=== PATIENT | male | born 1945 | race Caucasian/White ===

== ENCOUNTER 2017-03-22 17:03 | Inpatient (IN) | payer MEDICARE, OTHER ==
[2017-03-22] VITALS (8 sets, daily range): BP systolic 112–223; BP diastolic 64–106; PULSE 64–75; RESP 16–20; TEMP 98–98.6; O2SAT 96–100
[~2017-03-22] VITALS: Ht 167.6 cm; Wt 83.0 kg
[~2017-03-22 17:03] MED LIST: 1-ME1LIQ PO; ALBU0.086 NEB; ALBU8I INH; ASPI81TA82 PO; BENZ1CAP34 PO; DOCU1CAP39 PO; GABA400 PO; LANTUSP SQ; LORA-474 PO; MECL-62 PO; METF-324 PO; METO100T PO; PERC10TA27 PO; PRIN20TA2 PO; PROT40TA PO; SERT-129 PO; SIMV20 PO; TEMA15CA PO
[2017-03-22] MEDS ORDERED: HEPARIN SODIUM - IV 10,000 UNITS/10 ML VIAL IV STA (17:08)
[2017-03-22] MEDS ORDERED: ASPIRIN 81 MG CHEW TAB PO STA (17:08)
[2017-03-22] MEDS ORDERED: NITROGLYCERIN 0.4 MG SL 25 TABS/BTL SL STA (17:08)
[2017-03-22] MEDS ORDERED: SODIUM CHLOR 0.9% 1000 ML INJ 1,000 ML IV ONE (17:08)
[2017-03-22] MEDS ORDERED: NITROGLYCERIN-DEXTROSE INJ 250 ML IV SCH (17:15)
[2017-03-22] MEDS ORDERED: SODIUM CHLORIDE 0.9% FLUSH 10 ML FLUSH IVF PRN (17:15)
[2017-03-22] MEDS ORDERED: MIDAZOLAM HCL 2 MG/2 ML VIAL ONE (17:33)
[2017-03-22] MEDS ORDERED: HEPARIN-NS/PF INJ 500 ML ONE ×2 (17:33→18:06)
[2017-03-22 17:38] LABS: BASOPHIL % 0.3 % (0.0-2.0); EOSINOPHIL # 0.2 TH/MM3 (0-0.4); EOSINOPHIL % 2.6 % (0.0-4.0); HEMATOCRIT 41.3 % (39.0-51.0); LYMPH % 56.4 % (9.0-44.0); MEAN CELL VOLUME 83.3 FL (80.0-100.0); MEAN CORPUSCULAR HEMOGLOBIN 28.7 PG (27.0-34.0); MEAN CORPUSCULAR HGB CONC 34.5 % (32.0-36.0); MONO % 6.7 % (0.0-8.0); PLATELET COUNT 230 TH/MM3 (150-450); RED BLOOD COUNT 4.95 MIL/MM3 (4.50-5.90); RED CELL DISTRIBUTION WIDTH 12.5 % (11.6-17.2); WHITE BLOOD COUNT 8.9 TH/MM3 (4.0-11.0)
[2017-03-22] MEDS ORDERED: methylPREDNISolone SOD SUCC 125 MG/2 ML VIAL ONE (17:38)
[2017-03-22] MEDS ORDERED: diphenhydrAMINE HCL 50 MG/ML VIAL ONE (17:38)
--- NOTE | 2017-03-22 17:39 | RADRPT ---
EXAM DATE/TIME: 03/22/2017 17:02 [place] COMPARISON: CHEST SINGLE AP, October 25, 2015, 18:57. INDICATIONS : Stemi alert. MEDICAL HISTORY : Hypertension. Chronic obstructive pulmonary disease. SURGICAL HISTORY : CABG. ENCOUNTER: Initial ACUITY: 1 day PAIN SCORE: 8/10 LOCATION: Bilateral chest FINDINGS: A single view of the chest demonstrates the lungs to be symmetrically aerated without evidence of mas s, infiltrate or effusion. Median sternotomy wires and surgical changes of prior cardiac surgery. The cardiomediastinal contours are unremarkable. Osseous structures are intact. CONCLUSION: 1. No acute cardiopulmonary disease. Bart Welch MD on March 22, 2017 at 17:37 Board Certified Radiologist. This report was verified electronically.
--- NOTE | 2017-03-22 17:41 | PD ---
HPI Chief Complaint: Pain: Acute or Chronic Time Seen by Provider: 17:08 Travel History International Travel<30 days: No Contact w/Intl Traveler<30days: No Traveled to known affect area: No History of Present Illness HPI Patient is a 72-year-old male who comes in complaining of left-sided chest pain. He says it started 30 minutes prior to arrival he was in the laundry mat. He says the pain radiates to his arm and is severe. He has history of five-vessel CABG as well as a stent placed 2 months ago. PFSH Past Medical History Hx Anticoagulant Therapy: Yes (ASA PO DAILY) Arthritis: Yes Asthma: Yes Autoimmune Disease: No Blood Disorders: No Anxiety: Yes Heart Rhythm Problems: No Cancer: No Cardiac Catheterization: Yes Cardiovascular Problems: Yes (CABG X 5, HTN, HIGH CHOLESTEROL) High Cholesterol: Yes Chemotherapy: No Chest Pain: Yes Congestive Heart Failure: No COPD: Yes Cerebrovascular Accident: Yes Coronary Artery Disease: Yes Diabetes: Yes (ORAL MEDS AND INSULIN) Diminished Hearing: No Endocrine: Yes GERD: No Glaucoma: No Genitourinary: Yes Headaches: No Hepatitis: No Hiatal Hernia: No Hypertension: Yes Immune Disorder: No Kidney Stones: Yes Musculoskeletal: Yes Neurologic: Yes Psychiatric: No Respiratory: Yes (ASTHMA) Immunizations Current: Yes Myocardial Infarction: Yes Radiation Therapy: No Renal Failure: No Seizures: No Sickle Cell Disease: No Sleep Apnea: No Thyroid Disease: No Ulcer: No Past Surgical History Abdominal Surgery: No AICD: No Cardiac Surgery: Yes (2007) Coronary Artery Bypass Graft: Yes (5 VESSEL BYPASS ) Ear Surgery: No Endocrine Surgery: No Eye Surgery: No Genitourinary Surgery: No Gynecologic Surgery: No Joint Replacement: No Oral Surgery: No Pacemaker: No Thoracic Surgery: No Other Surgery: Yes Social History Alcohol Use: No Tobacco Use: No Substance Use: No Allergies-Medications (Allergen,Severity, Reaction): Coded Allergies: Geodon (Unverified Allergy, Severe, MOUTH SWELLS UP, 09/28/15) Iodine (Verified Allergy, Severe, Anaphylaxis, 09/28/15) Seafood (Verified Allergy, Severe, Anaphylaxis, 09/28/15) Reported Meds & Prescriptions Reported Meds & Active Scripts Active Aspir-81 (Aspirin) 81 Mg Tab 81 Mg PO DAILY 30 Days Meclizine Hcl (Meclizine HCl) 25 Mg Tab 25 Mg PO TID PRN Benzonatate 200 Mg Cap 200 Mg PO Q8H PRN Proventil Ud 0.083% (2.5 Mg/3 Ml) (Albuterol Sulfate) 2.5 Mg/3 Ml Inha 2.5 Mg NEB Q4HR NEB Protonix (Pantoprazole Sodium) 40 Mg Tab 40 Mg PO DAILY Reported Prinivil (Lisinopril) 20 Mg Tab 20 Mg PO BID Simvastatin 20 mg (Simvastatin) 20 Mg Tab 1 Tab PO HS Temazepam 15 Mg Cap 15 Mg PO HS PRN Colace 100 Mg Cap (Docusate Sodium) 100 Mg Cap 100 Mg PO BID Ventolin Hfa (Albuterol Sulfate) 8 Gm Aero 2 Puff INH Q4 PRN * SHAKE WELL BEFORE USE * Amlodipine Besylate 10 mg (Amlodipine Besylate) 10 Mg Tab 1 Tab PO DAILY Sertraline 100 mg (Sertraline HCl) 100 Mg Tab 100 Mg PO BID Percocet 10/325 (Oxycodone/Acetaminophen) Oxycodone 10/325 Acetaminophen Tab 1 Tab PO TID PRN Lantus (Insulin Glargine) 100 Units/Ml Inj 40 Units SQ HS Glucophage (Metformin HCl) 1,000 Mg Tab 1,000 Mg PO BID Ativan (Lorazepam) 1 Mg Tab 1 Mg PO TIDPRN Neurontin (Gabapentin) 400 Mg Cap 1,200 Mg PO TID Lopressor (Metoprolol Tartrate) 100 Mg Tab 100 Mg PO BID Review of Systems Except as stated in HPI: all other systems reviewed are Neg General / Constitutional: No: Fever, Chills HENT: No: Headaches, Lightheadedness Cardiovascular: Positive: Chest Pain or Discomfort Respiratory: Positive: Shortness of Breath Gastrointestinal: No: Nausea, Vomiting Genitourinary: No: Dysuria Musculoskeletal: No: Edema Skin: No Rash, No Change in Pigmentation Neurologic: No: Weakness, Dizziness Physical Exam Narrative GENERAL: Awake and alert, in mild distress due to pain. SKIN: Focused skin assessment warm/dry. HEAD: Atraumatic. Normocephalic. EYES: Pupils equal and round. No scleral icterus. ENT: ucous membranes pink and moist. NECK: Trachea midline. No JVD. CARDIOVASCULAR: Regular rate and rhythm. No murmur appreciated. RESPIRATORY: No accessory muscle use. Clear to auscultation. Breath sounds equal bilaterally. GASTROINTESTINAL: Abdomen soft, non-tender, nondistended. MUSCULOSKELETAL: No obvious deformities. No clubbing. No cyanosis. No edema. NEUROLOGICAL: Awake and alert. No obvious cranial nerve deficits. Motor grossly within normal limits. Normal speech. PSYCHIATRIC: Appropriate mood and affect; insight and judgment normal. Data Data Last Documented VS Vital Signs Date Time Temp Pulse Resp B/P Pulse Ox O2 Delivery O2 Flow Rate FiO2 03/22/17 17:20 75 16 147/70 100 Room Air 03/22/17 17:06 98.6 Orders Troponin I (03/22/17 17:08) Ckmb (Isoenzyme) Profile (03/22/17 17:08) Complete Blood Count With Diff (03/22/17 17:08) I-Stat Profile (03/22/17 17:08) I-Stat Creatinine (03/22/17 17:08) Calcium (03/22/17 17:08) Magnesium (Mg) (03/22/17 17:08) Prothrombin Time / Inr (Pt) (03/22/17 17:08) Act Partial Throm Time (Ptt) (03/22/17 17:08) B-Type Natriuretic Peptide (03/22/17 17:08) Chest, Single Ap (03/22/17 17:08) Oxygen Administration (03/22/17 17:08) Iv Access Insert/Monitor (03/22/17 17:08) Oximetry (03/22/17 17:08) Sodium Chlor 0.9% 1000 Ml Inj (Ns 1000 M (03/22/17 17:08) Sodium Chloride 0.9% Flush (Ns Flush) (03/22/17 17:15) Aspirin Chew (Aspirin Chew) (03/22/17 17:08) Nitroglycerin Sl (Nitrostat Sl) (03/22/17 17:08) Nitroglycerin-Dextrose Inj (Nitroglyceri (03/22/17 17:15) Heparin Inj (Heparin Inj) (03/22/17 17:08) Cardiac Catheterization (03/22/17 ) Heparin-Ns/Pf Inj (Heparin-Ns/Pf Inj) (03/22/17 17:33) Midazolam Inj (Versed Inj) (03/22/17 17:33) Fentanyl Inj (Fentanyl Inj) (03/22/17 17:33) Diphenhydramine Inj (Benadryl Inj) (03/22/17 17:38) Methylprednisolone So Succ Inj (Solumedr (03/22/17 17:38) Admit Order (Ed Use Only) (03/22/17 ) Labs Laboratory Tests Test 03/22/17 17:12 White Blood Count 8.9 TH/MM3 Red Blood Count 4.95 MIL/MM3 Hemoglobin 14.2 GM/DL Bedside Hemoglobin 14.6 G/DL Hematocrit 41.3 % Bedside Hematocrit 43.0 % Mean Corpuscular Volume 83.3 FL Mean Corpuscular Hemoglobin 28.7 PG Mean Corpuscular Hemoglobin 34.5 % Concent Red Cell Distribution Width 12.5 % Platelet Count 230 TH/MM3 Mean Platelet Volume 8.2 FL Neutrophils (%) (Auto) 34.0 % Lymphocytes (%) (Auto) 56.4 % Monocytes (%) (Auto) 6.7 % Eosinophils (%) (Auto) 2.6 % Basophils (%) (Auto) 0.3 % Neutrophils # (Auto) 3.0 TH/MM3 Lymphocytes # (Auto) 5.0 TH/MM3 Monocytes # (Auto) 0.6 TH/MM3 Eosinophils # (Auto) 0.2 TH/MM3 Basophils # (Auto) 0.0 TH/MM3 CBC Comment AUTO DIFF Differential Comment AUTO DIFF CONFIRMED Prothrombin Time 10.3 SEC Prothromb Time International 0.9 RATIO Ratio Activated Partial 27.0 SEC Thromboplast Time Bedside Sodium 135 MMOL/L Bedside Potassium 4.5 MMOL/L Bedside Chloride 95 MMOL/L Bedside Blood Urea Nitrogen 28 MG/DL Bedside Creatinine 1.2 MG/DL Bedside Glucose 243 MG/DL Calcium Level 9.6 MG/DL Magnesium Level 1.9 MG/DL Total Creatine Kinase 52 U/L Troponin I LESS THAN 0.02 NG/ML B-Type Natriuretic Peptide 68 PG/ML [facility] Medical Decision Making Medical Screen Exam Complete: Yes Emergency Medical Condition: Yes Interpretation(s) ECG shows STEMI. There are ST elevations in lead V1 through V3. There are reciprocal changes in leads 2, 3, aVF. Differential Diagnosis STEMI versus unstable angina versus ACS Narrative Course Patient is a 72-year-old male comes in complaining of chest pain. ECG shows STEMI. STEMI alert issued. IV established, labs sent. Patient given heparin and aspirin. Started on nitroglycerin due to high blood pressure. Dr. Dietrich, patient's stemming machine operator contacted, he will meet the patient in the catheter lab. Patient taken for cardiac catheter. Admitted for further management. Diagnosis Primary Impression: STEMI (ST elevation myocardial infarction) Qualified Code: I21.3 - ST elevation myocardial infarction (STEMI), unspecified artery Admitting Information Admitting Physician Requests: Admit Condition: Stable Katelyn Kirk MD Mar 22, 2017 17:41
[2017-03-22 17:42] LABS: HEMO FLAGS AUTO DIFF
[2017-03-22 17:43] LABS: I-STAT POTASSIUM 4.5 MMOL/L (3.5-4.9); I-STAT SODIUM 135 MMOL/L (138-146); INTERNATIONAL NORMALIZED RATIO 0.9 RATIO; PROTHROMBIN TIME - PATIENT 10.3 SEC (9.8-11.6)
[2017-03-22] MEDS ORDERED: HEPARIN SODIUM - IV 10,000 UNITS/10 ML VIAL ONE (17:59)
[2017-03-22] MEDS ORDERED: TIROFIBAN INFUSION INJ 250 ML IV ONE (17:59)
[2017-03-22 18:08] LABS: MAGNESIUM 1.9 MG/DL (1.5-2.5)
[2017-03-22] MEDS ORDERED: ADENOSINE IV SOLN 3 MG/ML 2 ML VIAL ONE (18:11)
[2017-03-22 18:21] LABS: CREATINE KINASE 52 U/L (39-308)
[2017-03-22 18:32] LABS: SCAN/DIFF AUTO DIFF CONFIRMED
[2017-03-22] MEDS ORDERED: CLOPIDOGREL 300 MG TAB ONE ×2 (18:34→18:36)
--- NOTE | 2017-03-22 18:55 | CATHPROC ---
[employer] HIS Report Study Information Study Number Admission Scheduled Start Study Start [id number] Mar 22 2017 5:03PM 03/22/2017 Mar 22 2017 5:32PM [facility] Service Cardiac Catheterization Admit Source Facility Department Emergency department [facility] - [employer] Physician and Clinical Staff Initial Harvey Johansen RN, Justa Barnes RN Recorder Lianne Song,(R) Scrub Luis Mcnulty RCIS(BS) Procedures Performed Procedure Location (Site) Vessel Name Coronary Angiograms LCA Left Coronary Coronary Angiograms RCA Right Coronary Coronary Angiograms GONZALES Graft Left Coronary Coronary Angiograms GONZALES-LAD Left Coronary Coronary Angiograms SVG-OM CIRC Coronary Angiograms SVG-RCA Right Coronary Drug Eluting Inflatio SVG-LAD Left Coronary L Heart Cath LV Gram-hand inj. LV LV Ventricle PTCA SVG-LAD Left Coronary PTCA LAD Dist Left Coronary PTCA ADD ON'S Wire insertion Fem Art (right) Femoral Art Equipment Time Sand Caster Description Size Mfg Part Number Used/Scraped [id number] 18:03 JOE [employer] WIRE, ASAHI PROWATER 180CM 180CM Used *[id number] [id number] 18:04 JOE [employer]IT[employer] C[employer] WIRE, ASAHI PROWATER 180CM 180CM Used *[id number] TRANSDUCER, TRDNP [employer] [id number] 17:44 LORD DANIELSON * Used W/STOCKCOCK *[id number] 18:12 BOSTON SCI[employer]IFIC BALLOON, 2.0 12MM EMERGE MR 2.0 12MM Used *[id number] 534-645T *[id number] 534-645T *[id number] *[id number] 534-648T *[id number] 534-660T *[id number] *[id number] 534-620T *[id number] 534-649T *[id number] 17:44 MEDLINE PACER PEN, SKIN DUAL W/ RULER * Used *[id number] STENT, 2.5 22 RESOLUTE [id number] 18:08 MEDTRONIC 2.5 22 Used INTEGRITY RX *[id number] 18:01 CoreFlow MEDICAL 30 GISELA INDEFLATOR Used *[id number] 17:44 CoreFlow MEDICAL WIRE, 3MMJ .035 180CM 180CM Used *[id number] 4676-23 17:50 CoreFlow MEDICAL WIRE, EXCHANGE 260CM .035 260CM Used *[id number] 18:03 MERIT MEDICAL WIRE, EXCHANGE 260CM 3MMJ 260CM Used *[id number] 17:44 NAMIC MANIFOLD, 4 PORT * Used *[id number] 17:44 NYCOMED OMNIPAQUE, 350 MG, 150ML 150ML [id number] Used 18:01 NYCOMED OMNIPAQUE, 350 MG, 50ML 50ML [id number] Used [id number] 17:44 FUCHS MEDICAL BLANKET,WARM AIR CCL * Used *[id number] 17:44 TERUMO MEDICAL SHEATH, FR6 TERUMO (10CM) FR 6 Used *[id number] Equipment Model, Serial, Lot Number and Expiration Data Description Model Number Serial Number Lot Number Expiration Date BALLOON, 2.0 12MM EMERGE MR [id number] 10-21-2019 STENT, 2.5 22 RESOLUTE [id number] 12-22-2018 INTEGRITY RX Labs Hgb (g/dl) Hct (%) RBC (MIL/MM3) WBC (l/cumm) Platelets (thousands) 11.60-17.00 35.00-51.00 4.00-5.90 4.00-11.00 150.00-450.00 14.6 43 4.9 8.9 230 Glucose (mg/dl) BUN (mg/dl) Creatinine (mg/dl) BUN:Creatinine (1:x) 74.00-106.00 7.00-18.00 0.50-1.30 10.00-20.00 243 28 1.2 23.3 Na (meq/l) K (meq/l) Cl (meq/l) 136.00-145.00 3.50-5.10 98.00-107.00 135 4.5 95 PT (sec) PTT (sec) INR (PTT:PT) 9.80-11.60 24.30-30.10 0.90-1.10 10.3 27 0.9 CPK-MB (ng/ML) 0.50-3.60 Not Drawn Medication Medication Total Dose (Bolus/Oral) Medication Total Dosage/Unit 1% XYLOCAINE 20 mL AGGRASTAT BOLUS 42 mL BENADRYL 50 mg FENTANYL 50 mcg HEPARIN 2000 units NTG (IC) 500 mcg PEPCID 20 mg PLAVIX 300 mg SOLU-MEDROL 60 mg VERSED 2 mg Medications (Bolus/Oral) Medication Time Given Dosage/Unit Administered By Reason SOLU-MEDROL 03/22/2017 5:39:00 PM 60 mg Pool Choi RN 60 mg SOLU-MEDROL given in lab by Pool Choi RN via Peripheral IV. PEPCID 03/22/2017 5:39:00 PM 20 mg Pool Choi RN 20 mg PEPCID given in lab by Pool Choi RN in Left Antecubital via Peripheral IV. BENADRYL 03/22/2017 5:40:00 PM 50 mg Pool Choi RN 50 mg BENADRYL given in lab by Pool Choi RN in Left Antecubital via Peripheral IV. FENTANYL 03/22/2017 5:40:35 PM 50 mcg Pool Choi RN Patient arrived on 50 mcg FENTANYL given by Pool Choi RN via Peripheral IV. VERSED 03/22/2017 5:41:23 PM 2 mg Pool Choi RN Patient arrived on 2 mg VERSED given by Pool Choi RN via Peripheral IV. 1% XYLOCAINE 03/22/2017 5:42:03 PM 20 mL Harvey Ferrer Patient arrived on 20 mL 1% XYLOCAINE given by Harvey Ferrer in Right Groin via Subcutaneous. HEPARIN 03/22/2017 6:01:00 PM 2000 units Pool Choi RN Patient arrived on 2000 units HEPARIN given by Pool Choi RN via Peripheral IV. AGGRASTAT BOLUS 03/22/2017 6:02:00 PM 42 mL Justa Gottlieb 42 mL AGGRASTAT BOLUS given in lab by Justa Gottlieb RN via Peripheral IV. NTG (IC) 03/22/2017 6:10:23 PM 200 mcg Luis Mcnulty 200 mcg NTG (IC) given in lab by Luis Mcnulty RCIS(LARA) via Intra-coronary. NTG (IC) 03/22/2017 6:16:34 PM 100 mcg Luis Mcnulty 100 mcg NTG (IC) given in lab by Luis Mcnulty RCIS(LARA) via Intra-coronary. NTG (IC) 03/22/2017 6:18:11 PM 100 mcg Luis Mcnulty 100 mcg NTG (IC) given in lab by Luis Mcnulty RCIS(LARA) via Intra-coronary. NTG (IC) 03/22/2017 6:24:04 PM 100 mcg Luis Mcnulty 100 mcg NTG (IC) given in lab by Luis Mcnulty RCIS(BS) via Intra-coronary. PLAVIX 03/22/2017 6:35:43 PM 300 mg Pool Choi RN 300 mg PLAVIX given in lab by Pool Choi RN via Oral. Medication (Drip) Medication Time Given Dosage/Unit Concentration/Unit Diluent (ml) Solutio n AGGRASTAT DRIP 03/22/2017 6:04:00 PM 0.149 mcg/kg/min 12.5 mg 250 NaCl .9 0.149 mcg/kg/min AGGRASTAT DRIP given in lab by Justa Gottlieb RN via Peripheral IV. Pump/Drip Flow = 15 ml/hr using NaCl .9 with a concentration of 12.5 mg in 250 ml. IV Solutions 03/22/2017 5:35:36 PM 0 mL (IV) 500 NaCl .9 Patient arrived on IV Solutions in Left Antecubital via Peripheral IV. Pump/Drip Flow = 20 ml/hr usin g NaCl .9. NITROGLYCERIN DRIP 03/22/2017 5:35:11 PM 20 mcg/min 50 mg 250 D5W 20 mcg/min NITROGLYCERIN DRIP given pre op in Left Antecubital via Peripheral IV. Pump/Drip Flow = 6 ml/hr using D5W with a concentration of 50 mg in 250 ml. Initial Case Assessment Cardiovascular HR Rhythm NIBP Chest Pain 69 reg 185/107 8 Edema Present Skin color Skin None Normal Warm Circulatory - Right Pulses Dorsalis Pedis Femoral 3 3 Scale (0,1,2,3,4,d) Circulatory - Left Pulses Dorsalis Pedis Femoral 3 3 Scale (0,1,2,3,4,d) Circulatory - Lower Extremities Color Lower Right Color Lower Left Normal Normal Neurological State Oriented to time-place- Alert Moves all extremities person Respiration - General Respiration Rate SpO2 (%) O2 (lpm) (B/min) 11 100 2 Final Case Assessment Cardiovascular HR Rhythm NIBP Chest Pain 70 REG 162/97 0 Edema Present Skin color Skin None Normal Warm Circulatory - Right Pulses Dorsalis Pedis Femoral 3 3 Scale (0,1,2,3,4,d) Circulatory - Left Pulses Dorsalis Pedis Femoral 3 3 Scale (0,1,2,3,4,d) Circulatory - Lower Extremities Color Lower Right Color Lower Left Normal Normal Neurological State Oriented to time-place- Alert Moves all extremities person Respiration - General Respiration Rate SpO2 (%) O2 (lpm) (B/min) 20 100 2 Chronological Log Time Study Chronological Log 17:32:52 Patient arrived via Bed. 17:32:53 Patient Name, D.O.B, / Armband Verified By R.N. 17:32:53 Consent signed by the physician and the patient and verified by the [employer] staff. 17:32:54 Pre-op and post- op instructions given; patient acknowledges understanding of instructions. 17:32:55 Verbal Stimulation=2 Physical Stimulation=2 Airway=2 Respiration=2 TOTAL=8. (0=absent, 1=li mited, 2=present) Vitals capture started with the following parameters, Patient=Adult, Interval=5 min, Initial Pr enbufm=107 mmHg, 17:32:58 Deflation Rate=5 mmHg 17:33:35 Reference ECG taken 17:34:06 Skin Breakdown- 17:34:17 HR=68 bpm, RSTZ=451/107 mmhg, YmV2=970.0 %, Resp=20 B/min, Pain=5, Bi=10, Arreguin=2 17:34:31 A # 20 IV was noted in the Antecubital (left). Grade = 0 17:34:39 A # 20 IV was noted in the Antecubital (right). Grade = 0 20 mcg/min NITROGLYCERIN DRIP given pre op in Left Antecubital via Peripheral IV. Pump/Drip Don w = 6 ml/hr using 17:35:11 D5W with a concentration of 50 mg in 250 ml. 17:35:36 Patient arrived on IV Solutions in Left Antecubital via Peripheral IV. Pump/Drip Flow = 20 ml/hr using NaCl .9. Assessment: Initial Case, HR=69 BPM, Rhythm=reg, ASHD=350/107 mmhg, Chest Pain=8, Edema=None, Color=Normal, Skin = Warm Right Pulses: Pacheco Ped=3, Femoral=3 Left Pulses: Pacheco Ped=3, Femoral=3 17:35:56 Lower Right Extremities: Color=Normal Lower Left Extremities: Color=Normal Neurological: State=Alert, Ox3, BRIGHT Respiration: Resp=11 B/min, WjD6=946 %, O2=2 lpm 17:36:58 Bilateral groins prepped with 2% chlorhexidine, and with a 3 min. waiting time. 17:37:01 MD arrived. 17:38:43 HR=68 bpm, DCEW=265/107 mmhg, ThN8=546.0 %, Resp=33 B/min, Pain=5, Bi=10, Arreguin=2 17:39:00 60 mg SOLU-MEDROL given in lab by Pool Choi RN via Peripheral IV. 17:39:00 20 mg PEPCID given in lab by Pool Choi RN in Left Antecubital via Peripheral IV. 17:40:00 50 mg BENADRYL given in lab by Pool Choi RN in Left Antecubital via Peripheral IV. 17:40:35 Patient arrived on 50 mcg FENTANYL given by Pool Choi RN via Peripheral IV. 17:41:23 Patient arrived on 2 mg VERSED given by Pool Choi RN via Peripheral IV. 17:41:55 Case Start 17:41:58 Verbal Stimulation=2 Physical Stimulation=2 Airway=2 Respiration=2 TOTAL=8. (0=absent, 1=li mited, 2=present) 17:42:03 Patient arrived on 20 mL 1% XYLOCAINE given by Harvey Ferrer in Right Groin via Subcutaneous. 17:42:44 PT PREMEDICATED FOR IODINE ALLERGY Time Out. Correct patient, correct procedure,correct physician, ,power injector loaded or not l oaded with contrast with 17:43:00 surgical team present. Time Out Concurred by MD, individual staff and SALES ASSISTANTS AND SALESPERSONS in procedure 17:43:23 Access site was Right Femoral Artery. 17:43:31 A wire was inserted via Fem Art (right). 17:43:33 A SHEATH, FR6 TERUMO (10CM) FR 6 was advanced into the Fem Art (right) using the [place] us technique. 17:43:46 HR=90 bpm, NPXW=949/107 mmhg, HiY6=114.0 %, Resp=16 B/min, Pain=5, Bi=10, Arreguin=2 17:43:54 Pressure channel 1 zeroed. A MARISSA INFINITI CATHETER FR 6 was advanced over a wire. OMNIPAQUE, 350 MG, 150ML 150ML was used for 17:45:03 injections. Recorded Pressure: LV, HR=67, Condition=Condition 1 17:45:25 (Left Ventricle) LV 163/9/22 17:45:35 The LV was manually injected with 8 cc's and visualized. OMNIPAQUE, 350 MG, 150ML 150ML use d. Recorded Pressure: LV, Ao, HR=68, Condition=Condition 1 17:45:47 (Left Ventricle) LV 177/19/30, (Aorta) Ao 176/90/125 Recorded Pressure: Ao, HR=66, Condition=Condition 1 17:47:06 (Aorta) Ao 158/78/110 17:47:54 A WIRE, EXCHANGE 260CM .035 260CM was inserted via Fem Art (right). 17:48:41 HR=67 bpm, AAKQ=674/103 mmhg, SpO2=99.0 %, Resp=15 B/min, Pain=5, Bi=10, Arreguin=2 17:49:31 The GONZALES-LAD was injected and visualized at various angles. OMNIPAQUE, 350 MG, 150ML 150ML used. 17:50:33 The RCA was injected and visualized at various angles. OMNIPAQUE, 350 MG, 150ML 150ML used . 17:51:31 Catheter was removed A JL 4.0 GUIDE CATHETER FR 6 was advanced over a wire. OMNIPAQUE, 350 MG, 150ML 150ML was used for 17:51:46 injections. 17:52:40 ACT (Normal Range 90-180) = 220 17:53:00 The LCA was injected and visualized at various angles. OMNIPAQUE, 350 MG, 150ML 150ML used . 17:53:40 HR=68 bpm, OROP=225/99 mmhg, QoV4=998.0 %, Resp=15 B/min, Pain=5, Bi=10, Arreguin=2 17:54:30 Catheter was removed A AL 1 INFINITI CATHETER FR 6 was advanced over a wire. OMNIPAQUE, 350 MG, 150ML 150ML was used for 17:54:32 injections. 17:56:26 The SVG-OM was injected and visualized at various angles. OMNIPAQUE, 350 MG, 150ML 150ML us ed. 17:58:00 The GONZALES Graft was injected and visualized at various angles. OMNIPAQUE, 350 MG, 150ML 150M L used. 17:58:41 HR=68 bpm, OWRN=321/96 mmhg, RhM8=962.0 %, Resp=15 B/min, Pain=5, Bi=10, Arreguin=2 18:00:08 OMNIPAQUE, 350 MG, 50ML 50ML and 30 GISELA INDEFLATOR added. 18:00:40 Catheter was removed 18:01:00 Patient arrived on 2000 units HEPARIN given by Pool Choi RN via Peripheral IV. 18:02:00 42 mL AGGRASTAT BOLUS given in lab by Justa Gottlieb RN via Peripheral IV. 18:02:49 A AR 1 GUIDE CATHETER FR 6 was advanced over a wire. OMNIPAQUE, 350 MG, 150ML 150ML was use d for injections. 18:03:40 HR=67 bpm, HIND=881/93 mmhg, YxK5=925.0 %, Resp=15 B/min, Pain=5, Bi=10, Arreguin=2 0.149 mcg/kg/min AGGRASTAT DRIP given in lab by Justa Gottlieb RN via Peripheral IV. Pump/Dri p Flow = 15 ml/hr 18:04:00 using NaCl .9 with a concentration of 12.5 mg in 250 ml. 18:04:20 A WIRE, [employer] PROWATER 180CM 180CM was inserted via Fem Art (right). 18:04:55 Interventional wire has crossed the lesion A STENT, 2.5 22 RESOLUTE INTEGRITY RX 2.5 22 was advanced through a AR 1 GUIDE CATHETER FR 6 ov er a WIRE, 18:07:39 ASAHI PROWATER 180CM 180CM. 18:08:41 HR=65 bpm, ZPZF=517/90 mmhg, WyB1=183.0 %, Resp=15 B/min, Pain=5, Bi=10, Arreguin=2 A STENT, 2.5 22 RESOLUTE INTEGRITY RX 2.5 22 was deployed using a 30 GISELA INDEFLATOR at 18 atmos pheres for 18:08:57 25 seconds in the SVG-LAD. 18:10:05 The GONZALES Graft was injected and visualized at various angles. OMNIPAQUE, 350 MG, 150ML 150M L used. 18:10:23 200 mcg NTG (IC) given in lab by Luis Mcnulty RCIS(BS) via Intra-coronary. A BALLOON, 2.0 12MM EMERGE MR 2.0 12MM was inserted over WIRE, ASAHI PROWATER 180CM 180CM via t he LAD 18:12:16 Dist. A BALLOON, 2.0 12MM EMERGE MR 2.0 12MM over a WIRE, ASAHI PROWATER 180CM 180CM in the LAD Dist was 18:13:06 inflated using a 30 GISELA INDEFLATOR at 12 gisela for 15 sec. 18:13:44 HR=61 bpm, TRQQ=478/72 mmhg, XdU3=879.0 %, Resp=18 B/min, Pain=5, Bi=10, Arreguin=2 A BALLOON, 2.0 12MM EMERGE MR 2.0 12MM over a WIRE, ASAHI PROWATER 180CM 180CM in the LAD Dist was 18:15:04 inflated using a 30 GISELA INDEFLATOR at 10 gisela for 15 sec. 18:16:31 Balloon Removed. 18:16:34 100 mcg NTG (IC) given in lab by Luis Mcnulty RCIS(BS) via Intra-coronary. 18:17:07 ACT (Normal Range 90-180) = 299 18:18:11 100 mcg NTG (IC) given in lab by Luis Mcnulty RCIS(BS) via Intra-coronary. 18:18:41 HR=67 bpm, LPOG=426/71 mmhg, JaR1=126.0 %, Resp=14 B/min, Pain=5, Bi=10, Arreguin=2 A BALLOON, 2.0 12MM EMERGE MR 2.0 12MM was inserted over WIRE, ASAHI PROWATER 180CM 180CM via t he SVG- 18:20:55 LAD. A BALLOON, 2.0 12MM EMERGE MR 2.0 12MM over a WIRE, ASAHI PROWATER 180CM 180CM in the SVG-LAD w as 18:22:08 inflated using a 30 GISELA INDEFLATOR at 8 gisela for 30 sec. A BALLOON, 2.0 12MM EMERGE MR 2.0 12MM over a WIRE, ASAHI PROWATER 180CM 180CM in the SVG-LAD w as 18:22:52 inflated using a 30 GISELA INDEFLATOR at 8 gisela for 15 sec. A BALLOON, 2.0 12MM EMERGE MR 2.0 12MM over a WIRE, ASAHI PROWATER 180CM 180CM in the SVG-LAD w as 18:23:17 inflated using a 30 GISELA INDEFLATOR at 8 gisela for 30 sec. 18:24:04 100 mcg NTG (IC) given in lab by Luis Mcnulty RCIS(BS) via Intra-coronary. 18:24:13 HR=67 bpm, ANGB=575/97 mmhg, HtP9=687.0 %, Resp=13 B/min, Pain=5, Bi=10, Arreguin=2 18:25:27 Balloon Removed. 18:25:34 Wire removed 18::38 Catheter was removed A AR MOD INFINITI CATHETER FR 6 was advanced over a wire. OMNIPAQUE, 350 MG, 150ML 150ML was us ed for 18:26:42 injections. 18:27:36 The SVG-RCA was injected and visualized at various angles. OMNIPAQUE, 350 MG, 150ML 150ML u sed. Recorded Pressure: Ao, HR=68, Condition=Condition 1 18:28:16 (Aorta) Ao 151/77/108 18:28:36 Catheter was removed OVER A WIRE 18:28:45 HR=68 bpm, XRVC=037/99 mmhg, DfU3=247.0 %, Resp=16 B/min, Pain=5, Bi=10, Arreguin=2 18:31:45 Case End 18:33:54 In the Fem Art (right) the SHEATH, FR6 TERUMO (10CM) FR [address] by Lachelle Mcnulty RCIS(BS). 18:34:13 HR=67 bpm, FGBH=944/96 mmhg, BjS3=911.0 %, Resp=17 B/min, Pain=5, Bi=10, Arreguin=2 18:34:22 Sterile dressing applied to site 18:34:22 No case complications noted. 18:34:23 Cine recording checked. 18:34:25 Bedside Report will be given. 18:34:28 Implantable Device card placed in patient's chart. 18:34:32 Contrast Scanned 18:34:36 A Left Heart Cath was performed. 18:34:41 Verbal Stimulation=2 Physical Stimulation=2 Airway=2 Respiration=2 TOTAL=8. (0=absent, 1=li mited, 2=present) 18:34:48 Clinical correlaton risk stratification. 18:35:43 300 mg PLAVIX given in lab by Pool Choi RN via Oral. Assessment: Final Case, HR=70 BPM, Rhythm=REG, WYZB=823/97 mmhg, Chest Pain=0, Edema=None, [place] r=Normal, Skin = Warm Right Pulses: Pacheco Ped=3, Femoral=3 Left Pulses: Pacheco Ped=3, Femoral=3 18:37:59 Lower Right Extremities: Color=Normal Lower Left Extremities: Color=Normal Neurological: State=Alert, Ox3, BRIGHT Respiration: Resp=20 B/min, GdJ8=484 %, O2=2 lpm 18:39:22 HR=68 bpm, MKXX=996/97 mmhg, TyD4=130.0 %, Resp=18 B/min, Pain=5, Bi=10, Arreguin=2 18:39:56 Catheter(s) removed without difficulty 18:40:26 Clinical correlaton risk stratification. End Study - Contrast Media Used In Study Contrast Total Opened (mL) Total Used (mL) Total Wasted (mL) Omnipaque 200 200 0 End Study - Maximum Contrast Load Max Contrast Load (mL) 350.0 End Study - Radiation Exposure Fluoro Time (minutes) 11.5 End Study - Patient Disposition Complications Transferred To Interventional Outcome No Regular Bed successful
--- NOTE | 2017-03-22 20:51 | MB ---
cc: KAYLIE SIMMONS M.D. DATE OF CONSULTATION 03/23/17 DATE OF 1945 REASON FOR CONSULTATION Acute anterior wall myocardial infarction. HISTORY OF PRESENT ILLNESS This is a 72-year-old white male. On the day of admission developed 1 hour of substernal heaviness with shortness of breath. He was alone at home. He drove himself to the emergency room where he was found to have an ST elevation in V1-V3. A STEMI protocol was activated. First set of enzymes was normal. His cardiac history dates back to 10 years ago. At that time he had a four graft bypass. October of this year the patient was admitted for exertional chest discomfort and he underwent stenting of the left main into the mid left circumflex. Since discharge he did well until March 08. He was readmitted for recurrence of chest pain at [facility] and EKGs, enzymes were normal. He was observed and sent home. He did well until today. He is known to have hypertension, diabetes and hyperlipidemia. He is a nonsmoker. He has been short of breath walking short distance because of chronic asthma, ending up with COPD. REVIEW OF SYSTEMS As stated in the chart. MEDICATIONS At home: 1. Amlodipine 5 milligrams daily. 2. Baby aspirin a day. 3. Plavix 75 milligrams daily. 4. Lasix 20 milligrams daily. 5. Hydrochlorothiazide p.r.n. 6. Lantus 50 units subcu q. h.s. 7. Insulin medium dose at mealtime and bedtime. 8. Lisinopril 10 milligrams daily. 9. Metoprolol 50 milligrams b.i.d. 10. Singulair 10 milligrams q. h.s. 11. Protonix 40 milligrams daily. 12. Zocor 20 milligrams daily. ALLERGIES IODINE PREP. SOCIAL HISTORY The patient is . FAMILY HISTORY Noncontributory. PAST MEDICAL HISTORY Hypertension, hyperlipidemia, diabetes, bypass surgery, stenting of the left circumflex October of this year. History of CVA and COPD, anxiety disorder. PHYSICAL EXAMINATION VITAL SIGNS: On day of consultation blood pressure is 150/70, pulse is 70 per minute. HEAD/NECK: Show normal oral exam. Neck is supple. CHEST: Exam showed decreased air entry with no bronchospasm. CARDIOVASCULAR: Showed normal neck vein. S1-S2 normal. No S3, no S4. No murmur. ABDOMEN: Abdominal examination revealed liver and spleen not palpable. Bowel sounds normal. Nontender abdomen. INBOUND INGREDIENT LOGISTICS SPECIALIST: Exam showed the patient very anxious, complained of chest tightness, ___. PERIPHERAL VASCULAR: All peripheral pulses equal with no bruits. ASSESSMENT 1. Acute anterior wall myocardial infarct. 2. History of hypertension, diabetes and hyperlipidemia. 3. Bypass surgery 10 years ago with four grafts, namely GONZALES graft to the diagonal branch, saphenous venous graft to the left anterior descending, saphenous venous graft to the distal right coronary artery and saphenous venous graft to the posterolateral branch of the left circumflex. 4. Chronic asthmatic bronchitis. 5. History of CVA. PLAN Patient will undergo cardiac catheterization for the STEMI protocol. The risk and benefits of the procedure have been explained to the patient. This includes but not limited to myocardial infarction, , arrhythmia, allergy to the dye and possibility of emergency bypass surgery. The patient has given the consent. MD SOTERO Tubbs/ARABELLA /7:51 PM /8:21 PM
[2017-03-22] MEDS ORDERED: LISINOPRIL 20 MG TAB PO SCH (21:00)
--- NOTE | 2017-03-22 21:03 | MA ---
cc: KAYLIE SIMMONS M.D. DATE: 03/22/2017. CLINICAL HISTORY: The patient had a STEMI with chest pain. The protocol was activated. PROCEDURES PERFORMED: 1. Left heart catheterization, left ventriculogram, coronary arteriography, graft study. 2. Stenting of the graft to the left anterior descending artery. DESCRIPTION OF THE PROCEDURE IN DETAIL: The above-mentioned procedures were performed using the right femoral approach. At the end of procedure, all catheters and wires were removed. The arterial sheath was left in place for subsequent hemodynamic monitoring. HEMODYNAMICS: Heart rate 70 beats per minute. Left ventricular end diastolic pressure was 19. Systemic aortic pressure was 150/70 with a mean of 90. There was no gradient seen across the aortic valve. The ejection fraction was about 45% to 50%. COMMENTS: The ejection fraction was mildly decreased. Left ventricular end diastolic pressure was moderately elevated. LEFT VENTRICULOGRAPHY: A left ventriculography was performed in the right anterior oblique projection. The left ventricle was mildly dilated with mild anterior wall hypokinesis. CORONARY ARTERIOGRAPHY: Selective left and right coronary arteriography was performed in the left, right and surgical oblique projections. The right coronary artery was occluded proximally. The saphenous vein graft to the posterior descending artery of the distal right coronary artery was normal with the exceptions of a 50% stenosis in the mid right graft; however, the small posterior descending artery and the posterolateral branch were small and diffusely diseased. The left main had a widely patent stent distally extending to the left circumflex. The left circumflex was a normal sized vessel. As mentioned above, there was a patent stent extending from the left main into the proximal left circumflex. It supplies two marginal branches. Both marginal branches were small and diffusely diseased. There was a posterior descending also supplied by the left circumflex. There was a 90% narrowing proximally. The left anterior descending was occluded proximally. The mid and left anterior descending fills via the saphenous venous graft which has a narrowing of 95% with ulcerated plaque and thrombus measuring 15 mm. LELO II flow was seen down the distal left anterior descending. The distal left anterior descending was small and diffusely diseased. The major diagonal branch was occluded proximally. It filled via a normal saphenous vein graft; however, the diagonal branch itself was small and diffusely diseased. The coronary circulation was codominant. INTERVENTIONAL PROCEDURE: The guiding catheter used was a 6-Slovenian AR-1 guiding catheter. The guidewire used was a Prestigoswater wire. The stent used was a Resolute 2.5 x 22 stent. The balloon used was an Emerge 2.0 x 12 balloon. The guidewire had no difficulty passing down to the distal left anterior descending through the saphenous venous graft. The ulcerated proximal stenosis of the graft was treated with direct stenting at 14 atmospheres. The residual stenosis 0%. However, there was limited flow was down to the distal left anterior descending with the presence of the guidewire. The 2.0 balloon was then dilated three or four times down the distal left anterior descending at 8 atmospheres. LELO III flow was then reestablished. The patient was given intravenous heparin and intravenous Aggrastat drip and bolus. DIAGNOSTIC IMPRESSION: 1. Successful stenting of the saphenous venous graft to the left anterior descending. 2. Patent stent of the left main to the proximal and mid left circumflex. 3. Normal patent GONZALES graft to the diagonal branch which was however diffusely diseased. 4. Normal patent saphenous venous graft to the posterolateral branch of the distal right coronary artery; however, the distal right coronary artery was small and diffusely diseased. 5. Normal saphenous venous graft to the posterolateral branch of the left circumflex which was small and diffusely diseased. 6. Occluded proximal right coronary artery and left anterior descending. 7. Mildly impaired left ventricular systolic wall motion. MD SOTERO Tubbs/MARKUS /7:58 PM /8:44 PM
[2017-03-22] MEDS: oxyCODONE/ACETAMINOPHEN 10 MG/325 MG TAB PO PRN (22:08)
[2017-03-23] VITALS (26 sets, daily range): BP systolic 91–150; BP diastolic 52–81; PULSE 60–74; RESP 20–22; TEMP 98.1–98.3; O2SAT 94–99
[2017-03-23] MEDS ORDERED: DEXTROSE 50% IN WATER 50 ML VIAL(D50) IV PRN (01:00)
[2017-03-23] MEDS ORDERED: LORazepam 1 MG TAB PO ONE (01:00)
[2017-03-23] MEDS ORDERED: GLUCAGON 1 MG/ML VIAL OTHER PRN (01:00)
[2017-03-23] MEDS: INSULIN ASPART SUPPLEMENTAL SCALE SQ SCH ×5 (01:24→21:58)
[2017-03-23] MEDS: oxyCODONE/ACETAMINOPHEN 10 MG/325 MG TAB PO PRN ×3 (06:15→17:03)
[2017-03-23] MEDS ORDERED: ATROPINE SULFATE 1 MG/10 ML SYRINGE ONE (07:30)
[2017-03-23] MEDS ORDERED: ASPIRIN 81 MG CHEW TAB PO SCH (10:00)
[2017-03-23] MEDS: LISINOPRIL 10 MG TAB PO SCH ×2 (11:22→21:48)
[2017-03-23] MEDS: TICAGRELOR 90 MG TAB PO SCH ×2 (11:22→21:48)
--- NOTE | 2017-03-23 11:56 | EKG ---
Date Performed: 03/22/2017 Time Performed: 17:05:26 PTAGE: 72 years EKG: Sinus rhythm SEPTAL MYOCARDIAL INFARCTION ST ELEVATION, CONSIDER ANTERIOR INJURY ACUTE VA INTERPRETATION BA SED ON A DEFAULT AGE OF 40 YEARS PREVIOUS TRACING 10/25/2015 Compared to the prior study, changes of anterior infarction are now present. DOCTOR: Wild Butts Interpretating Date/Time 03/23/2017 11:55:49
[2017-03-23] MEDS ORDERED: INSULIN DETEMIR 100 UNITS/ML VIAL SQ ONE (14:00)
[2017-03-23] MEDS ORDERED: LORazepam 0.5 MG TAB PO PRN (16:00)
[2017-03-23] MEDS ORDERED: INSULIN DETEMIR 100 UNITS/ML VIAL SQ SCH (21:00)
[2017-03-23] MEDS ORDERED: ATORVASTATIN 40 MG TAB PO SCH (21:00)
--- NOTE | 2017-03-23 23:31 | HHI.HP ---
HPI Service [facility] Primary Care Physician Areli Leon M.D. Admission Diagnosis STEMI Diagnoses: Travel History International Travel<30 Days: No Contact w/Intl Traveler <30 Da: No Traveled to Known Affected Are: No History of Present Illness 72-year-old male with history of diabetes, hypertension, coronary artery disease with CABG in 2007, who presents with intense nonradiating sternal chest pain beginning yesterday around 4 PM. This chest pain persisted until cardiac catheterization this morning, and has now resolved. Patient denies any other symptoms. Denies any nausea, vomiting, shortness of breath. He did have a cold sweat while he was having chest pain, however this is resolved. No fevers. Review of Systems performed and negative except for HPI and past medical history Past Family Social History Past Medical History Hypertension Diabetes Coronary artery disease Asthma Depression Peripheral neuropathy Past Surgical History CABG Reported Medications patient has not been taking his home medications for 2 weeks. Allergies: Coded Allergies: Geodon (Unverified Allergy, Severe, MOUTH SWELLS UP, 09/28/15) Iodine (Verified Allergy, Severe, Anaphylaxis, 09/28/15) Seafood (Verified Allergy, Severe, Anaphylaxis, 09/28/15) Family History Mother from breast cancer. Father with no medical issues Social History Nonsmoker. Nondrinker. Denies illicit drugs Physical Exam Vital Signs Vital Signs Date Time Temp Pulse Resp B/P Pulse Ox O2 Delivery O2 Flow Rate FiO2 03/23/17 18:29 18 03/23/17 18:00 68 03/23/17 17:00 68 03/23/17 16:00 66 03/23/17 15:30 98.1 74 20 150/81 99 03/23/17 15:00 68 03/23/17 14:00 72 03/23/17 13:00 72 03/23/17 12:00 62 03/23/17 11:30 98.3 60 20 121/74 94 03/23/17 11:00 66 03/23/17 10:00 64 03/23/17 09:00 60 03/23/17 08:00 64 03/23/17 07:30 98.1 67 20 120/56 97 03/23/17 07:00 66 03/23/17 06:00 64 03/23/17 05:00 62 03/23/17 04:10 62 03/23/17 03:00 98.2 63 20 91/52 97 03/23/17 03:00 64 03/23/17 02:00 66 03/23/17 01:00 62 03/23/17 00:00 68 Physical Exam GENERAL: This is a well-nourished, well-developed patient, in no apparent distress. SKIN: No rashes, ecchymoses or lesions. Cool and dry. HEAD: Atraumatic. Normocephalic. No temporal or scalp tenderness. EYES: Pupils equal round and reactive. Extraocular motions intact. No scleral icterus. No injection or drainage. ENT: Nose without bleeding, purulent drainage or septal hematoma. Throat without erythema, tonsillar hypertrophy or exudate. Uvula midline. Airway patent. NECK: Trachea midline. No JVD or lymphadenopathy. Supple, nontender, no meningeal signs. CARDIOVASCULAR: Regular rate and rhythm without murmurs, gallops, or rubs. RESPIRATORY: Clear to auscultation. Breath sounds equal bilaterally. No wheezes , rales, or rhonchi. GASTROINTESTINAL: Abdomen soft, non-tender, nondistended. No hepato-splenomegaly , or palpable masses. No guarding. MUSCULOSKELETAL: Extremities without clubbing, cyanosis, or edema. No joint tenderness, effusion, or edema noted. No calf tenderness. Negative Homans sign bilaterally. NEUROLOGICAL: Awake and alert. Cranial nerves II through XII intact. Motor and sensory grossly within normal limits. Five out of 5 muscle strength in all muscle groups. Normal speech. Result Diagram: 03/22/171711 Imaging Last Impressions Chest X-Ray 03/22/171707 Signed Impressions: Service Date/Time: March 17:02 - CONCLUSION: 1. No acute cardiopulmonary disease. Bart Welch MD Assessment and Plan Assessment and Plan //STEMI //Coronary artery disease -Status post cardiac catheterization this morning, with PCI. -Continue anticoagulation as per cardiology. -Will need to be started on beta luis. Heart rate stable at this time. //Hypertension. Blood pressure acceptable. Continue to monitor. //Diabetes. Insulin sliding scale. Diabetic diet. Continue to monitor. //Medication noncompliance. Patient and unaware of what medications he is taking. -Patient reports that he has not been following up with primary care due to them not refilling his oxycodone. It seems he has been off his medications for several weeks. //Prophylaxis. As per cardiology. Discussed Condition With patient, at bedside. Physician Certification 2 Midnight Certification Type: Admission for Inpatient Services Order for Inpatient Services The services are ordered in accordance with Medicare regulations or non- Medicare payer requirements, as applicable. In the case of services not specified as inpatient-only, they are appropriately provided as inpatient services in accordance with the 2-midnight benchmark. Estimated LOS (days): 2 days is the estimated time the patient will need to remain in the hospital, assuming treatment plan goals are met and no additional complications. Post-Hospital Plan: Not yet determined Javon Perkins MD Mar 23, 2017 23:31
--- NOTE | 2017-03-24 00:20 | PD.AMA ---
Against Medical Advice Note Diagnosis: (1) STEMI (ST elevation myocardial infarction) Discharge Disposition: Against Medical Advice Pt Condition on Discharge: Guarded AMA Statement Patient Tony Ferrer has decided to leave the hospital against medical advice. This patient has the capacity to refuse care and understands the risks of leaving, including permanent disability and/or , and has had an opportunity to ask questions about his condition. The patient has been informed that he may return for care at any time, and follow up has been arranged/advised. Patient is A&Ox 4 and is insisting on leaving, he does not want any further medication or treatment, he states he rather take the medication he has at home. He stated he knows his rights and he is leaving. He verbalizes understanding of the risks with leaving the hospital against medical advice. Vilma Philip Mar 24, 2017 00:20
== END 2017-03-23 23:06 | disposition left against medical advice (07) | DRG 247 ==
LOC: NEPE 17:03 → HCIN 17:41
PROVIDERS: ADMIT Hospitalist; ATTEND Hospitalist
PROC: 027034Z Dilation of Coronary Artery, One Artery with Drug-eluting Intraluminal Device, Percutaneous Approach (ICD-10-PCS; principal; 2017-03-22)
PROC: B2111ZZ Fluoroscopy of Multiple Coronary Arteries using Low Osmolar Contrast (ICD-10-PCS; 2017-03-22)
PROC: B2131ZZ Fluoroscopy of Multiple Coronary Artery Bypass Grafts using Low Osmolar Contrast (ICD-10-PCS; 2017-03-22)
PROC: 4A023N7 Measurement of Cardiac Sampling and Pressure, Left Heart, Percutaneous Approach (ICD-10-PCS; 2017-03-22)
PROC: B2151ZZ Fluoroscopy of Left Heart using Low Osmolar Contrast (ICD-10-PCS; 2017-03-22)
DX: I21.09 ST elevation (STEMI) myocardial infarction involving other coronary artery of anterior wall (principal); I25.810 Atherosclerosis of coronary artery bypass graft(s) without angina pectoris; E11.9 Type 2 diabetes mellitus without complications; J44.9 Chronic obstructive pulmonary disease, unspecified; I25.10 Atherosclerotic heart disease of native coronary artery without angina pectoris; I10 Essential (primary) hypertension; Z91.14 Patient's other noncompliance with medication regimen; Z95.5 Presence of coronary angioplasty implant and graft; E78.5 Hyperlipidemia, unspecified; Z86.73 Personal history of transient ischemic attack (TIA), and cerebral infarction without residual deficits
CPT/HCPCS: 71010; 82310; 82435; 82550; 82565; 82947; 82948; 83735; 83880; 84132; 84295; 84484; 84520; 85002; 85025; 85610; 85730; 92928; 93005; 93458; 96374; 96375; C1725; C1769; C1874; C1887; C1893; J0153; J0461; J1200; J1644; J1815; J2250; J2930; J3010; J3246

== ENCOUNTER 2017-10-23 19:48 | Emergency (ER) | payer MEDICARE, MEDICAID ==
[2017-10-23 19:57] VITALS: BP 127/61; PULSE 68; RESP 15; TEMP 98.3; O2SAT 99
--- NOTE | 2017-10-23 21:19 | PD ---
HPI Chief Complaint: Medical Clearance Time Seen by Provider: 19:57 Travel History International Travel<30 days: No Contact w/Intl Traveler<30days: No Traveled to known affect area: No History of Present Illness HPI Patient presents emergency department for psychiatric evaluation. Patient ran out of his pain medication 4 days ago and feels like he is losing his mind. States he is hallucinating and feeling like things are crawling on him. He is increasingly agitated. says he has no psychiatric history. No illicit drug use. No other symptoms to report. PFSH Past Medical History Hx Anticoagulant Therapy: Yes (ASA PO DAILY) Arthritis: Yes Asthma: Yes Autoimmune Disease: No Blood Disorders: No Anxiety: Yes Depression: Yes Heart Rhythm Problems: No Cancer: No Cardiac Catheterization: Yes Cardiovascular Problems: Yes High Cholesterol: Yes Chemotherapy: No Chest Pain: Yes Congestive Heart Failure: No COPD: Yes Cerebrovascular Accident: Yes (MORE THAN 20 YEARS AGO) Coronary Artery Disease: Yes Diabetes: Yes Diminished Hearing: No Endocrine: Yes GERD: No Glaucoma: No Genitourinary: Yes Headaches: No Hepatitis: No Hiatal Hernia: No Hypertension: Yes Immune Disorder: No Kidney Stones: Yes Musculoskeletal: Yes Neurologic: Yes Psychiatric: Yes Reproductive: No Respiratory: Yes Immunizations Current: Yes Myocardial Infarction: Yes Radiation Therapy: No Renal Failure: No Seizures: No Sickle Cell Disease: No Sleep Apnea: No Thyroid Disease: No Ulcer: No Past Surgical History Abdominal Surgery: No AICD: No Cardiac Surgery: Yes (CABGX5, STENT IN 2017) Coronary Artery Bypass Graft: Yes (5 VESSEL BYPASS ) Ear Surgery: No Endocrine Surgery: No Eye Surgery: No Genitourinary Surgery: No Gynecologic Surgery: No Joint Replacement: No Oral Surgery: No Pacemaker: No Thoracic Surgery: No Other Surgery: Yes Social History Alcohol Use: No Tobacco Use: No Substance Use: No Allergies-Medications (Allergen,Severity, Reaction): Coded Allergies: Fish Containing Products (Unverified Allergy, Severe, Anaphylaxis, 04/03/17 ) iodine (Unverified Allergy, Severe, Anaphylaxis, 04/03/17) potassium iodide (Unverified Allergy, Severe, Anaphylaxis, 04/03/17) povidone-iodine (Unverified Allergy, Severe, Anaphylaxis, 04/03/17) sodium iodide (Unverified Allergy, Severe, Anaphylaxis, 04/03/17) sodium iodide (Unverified Allergy, Severe, Anaphylaxis, 04/03/17) ziprasidone (Unverified Allergy, Severe, MOUTH SWELLS UP, 04/03/17) Reported Meds & Prescriptions Reported Meds & Active Scripts Active Aspir-81 (Aspirin) 81 Mg Tab 81 Mg PO DAILY 30 Days Meclizine Hcl (Meclizine HCl) 25 Mg Tab 25 Mg PO TID PRN Benzonatate 200 Mg Cap 200 Mg PO Q8H PRN Proventil Ud 0.083% (2.5 Mg/3 Ml) (Albuterol Sulfate) 2.5 Mg/3 Ml Inha 2.5 Mg NEB Q4HR NEB Protonix (Pantoprazole Sodium) 40 Mg Tab 40 Mg PO DAILY Reported Prinivil (Lisinopril) 20 Mg Tab 20 Mg PO BID Simvastatin 20 mg (Simvastatin) 20 Mg Tab 1 Tab PO HS Temazepam 15 Mg Cap 15 Mg PO HS PRN Colace 100 Mg Cap (Docusate Sodium) 100 Mg Cap 100 Mg PO BID Ventolin Hfa (Albuterol Sulfate) 8 Gm Aero 2 Puff INH Q4 PRN * SHAKE WELL BEFORE USE * Amlodipine Besylate 10 mg (Amlodipine Besylate) 10 Mg Tab 1 Tab PO DAILY Sertraline 100 mg (Sertraline HCl) 100 Mg Tab 100 Mg PO BID Percocet 10/325 (Oxycodone/Acetaminophen) Oxycodone 10/325 Acetaminophen Tab 1 Tab PO TID PRN Lantus (Insulin Glargine) 100 Units/Ml Inj 40 Units SQ HS Glucophage (Metformin HCl) 1,000 Mg Tab 1,000 Mg PO BID Ativan (Lorazepam) 1 Mg Tab 1 Mg PO TIDPRN Neurontin (Gabapentin) 400 Mg Cap 1,200 Mg PO TID Lopressor (Metoprolol Tartrate) 100 Mg Tab 100 Mg PO BID Review of Systems Except as stated in HPI: all other systems reviewed are Neg Physical Exam Narrative Well-nourished elderly male patient in no acute distress. Patient has even respirations. Regular heart rate. Moves all extremities freely. Speaks to me clearly. Data Data Last Documented VS Orders MDM Medical Decision Making Medical Screen Exam Complete: Yes Emergency Medical Condition: Yes Medical Record Reviewed: Yes Differential Diagnosis Mood disorder versus personality disorder versus withdrawal symptoms versus acute psychosis Narrative Course 72-year-old male presents emergency department for evaluation of psychiatric symptoms. Workup is initiated in triage. Prior to bed placement, patient chooses to leave. AMA: The risks of leaving against medical advice without further evaluation treatment were discussed with the patient. These risks include cardiac dysfunction, cardiac dysrhythmia, possible heart attack, possible stroke or . The patient indicated understanding of these risks and appeared to have the capacity to make this decision. Diagnosis Primary Impression: Bipolar disorder Disposition: 07 AGAINST MEDICAL ADVICE Condition: Stable Annel Wood Oct 23, 2017 21:19
== END 2017-10-24 02:12 | disposition left against medical advice (07) ==
LOC: NED 19:48
DX: F31.9 Bipolar disorder, unspecified (principal); I10 Essential (primary) hypertension; I25.10 Atherosclerotic heart disease of native coronary artery without angina pectoris; I25.2 Old myocardial infarction; E78.00 Pure hypercholesterolemia, unspecified; J44.9 Chronic obstructive pulmonary disease, unspecified; E11.9 Type 2 diabetes mellitus without complications; F41.9 Anxiety disorder, unspecified; M19.90 Unspecified osteoarthritis, unspecified site; Z53.21 Procedure and treatment not carried out due to patient leaving prior to being seen by health care provider; Z86.73 Personal history of transient ischemic attack (TIA), and cerebral infarction without residual deficits; Z95.1 Presence of aortocoronary bypass graft; Z88.8 Allergy status to other drugs, medicaments and biological substances; Z79.4 Long term (current) use of insulin; Z79.899 Other long term (current) drug therapy
CPT/HCPCS: 99281